=== PATIENT | male | born 1990 | race Caucasian/White ===

== ENCOUNTER 2024-08-04 00:51 | Inpatient (IN) | payer OTHER ==
[2024-08-04 01:02] VITALS: BMI 29.7
[2024-08-04] MEDS ORDERED: BENZONATATE 200 MG CAPSULE PO PRN (01:26)
[2024-08-04] MEDS ORDERED: NALOXONE (NARCAN) HCL 4 MG/0.1 ML SPRAY NS PRN (01:26)
[2024-08-04] MEDS ORDERED: hydrOXYzine PAMOATE 25 MG CAPSULE (FP) PO PRN (01:26)
[2024-08-04] MEDS ORDERED: MAGNESIUM HYDROX 2400MG/30ML ORAL SUSPENSION 30 ML CUP PO PRN (01:26)
[2024-08-04] MEDS ORDERED: ACETAMINOPHEN 325 MG TABLET (FP) PO PRN (01:26)
[2024-08-04] MEDS ORDERED: IBUPROFEN 400 MG TABLET (FP) PO PRN (01:26)
[2024-08-04] MEDS ORDERED: ONDANSETRON *ODT* 4 MG TABLET SL PRN (01:26)
[2024-08-04] MEDS ORDERED: MAG HYDROX/AL HYDROX/SIMETH 30 ML UNIT-DOSE CUP PO PRN (01:26)
[2024-08-04] MEDS ORDERED: DICYCLOMINE HCL 10 MG CAPSULE PO PRN (01:26)
[2024-08-04] MEDS ORDERED: BISMUTH SUBSALICYLATE 524 MG/30 ML PO PRN (01:26)
[2024-08-04] MEDS ORDERED: IBUPROFEN 600 MG TABLET (FP) PO PRN (01:26)
[2024-08-04] MEDS ORDERED: POLYETHYLENE GLYCOL (HEALTHYLAX) 3350 17 GM PACKET PO PRN (01:26)
[2024-08-04] MEDS ORDERED: LOPERAMIDE HCL 2 MG CAPSULE PO PRN (01:26)
[2024-08-04] MEDS ORDERED: guaiFENesin 600 MG TABLET.ER (FP) PO PRN (01:26)
[2024-08-04] MEDS ORDERED: METHOCARBAMOL 500 MG TABLET PO PRN (01:26)
[2024-08-04] MEDS ORDERED: BENZOCAINE/MENTHOL (CHLORASEPTIC ) LOZENGE MM PRN (01:26)
[2024-08-04] MEDS ORDERED: chlordiazePOXIDE HCL 25 MG CAPSULE PO PRN (01:29)
[2024-08-04 05:46] VITALS: TEMP 97.7
[2024-08-04] MEDS ORDERED: chlordiazePOXIDE HCL 25 MG CAPSULE ONE ×2 (05:46→10:58)
[2024-08-04] MEDS: chlordiazePOXIDE HCL 25 MG CAPSULE PO SCH (05:50)
[2024-08-04 08:34] VITALS: BP 103/61; PULSE 73; RESP 16
[2024-08-04] MEDS ORDERED: PRENATAL VITAMINS W/ FOLIC ACID TABLET (FP) PO ONE (10:58)
[2024-08-04] MEDS: PRENATAL VITAMINS W/ FOLIC ACID TABLET (FP) PO SCH (11:02)
[2024-08-04] MEDS ORDERED: THIAMINE 100 MG TABLET PO SCH (22:00)
[2024-08-04] MEDS ORDERED: MELATONIN 5 MG TABLETS PO SCH (22:00)
[2024-08-05] MEDS ORDERED: chlordiazePOXIDE HCL 25 MG CAPSULE PO SCH (05:00)
[2024-08-06] MEDS ORDERED: chlordiazePOXIDE HCL 10 MG CAPSULE PO PRN
[2024-08-06] MEDS ORDERED: chlordiazePOXIDE HCL 10 MG CAPSULE PO SCH (05:00)
[2024-08-07] MEDS ORDERED: chlordiazePOXIDE HCL 10 MG CAPSULE PO SCH (05:00)
[2024-08-08] MEDS ORDERED: chlordiazePOXIDE HCL 10 MG CAPSULE PO ONE (05:00)
== END 2024-08-04 11:23 | disposition left against medical advice (07) | DRG 770 ==
LOC: YASAS 00:51 → Y6N 10:17
PROVIDERS: ADMIT Allergy & Immunology; ATTEND Allergy & Immunology
PROC: HZ2ZZZZ Detoxification Services for Substance Abuse Treatment (ICD-10-PCS; principal; 2024-08-04)
DX: F10.230 Alcohol dependence with withdrawal, uncomplicated (principal); F14.20 Cocaine dependence, uncomplicated; F13.20 Sedative, hypnotic or anxiolytic dependence, uncomplicated; F12.20 Cannabis dependence, uncomplicated; F17.210 Nicotine dependence, cigarettes, uncomplicated; F31.9 Bipolar disorder, unspecified; F20.9 Schizophrenia, unspecified; F41.8 Other specified anxiety disorders; Z87.891 Personal history of nicotine dependence
CPT/HCPCS: 36415; 80305; 80307; 93005; 93010